=== PATIENT | male | born 1965 | race Caucasian/White ===

== ENCOUNTER 2020-07-09 08:19 | Emergency (ER) | payer MEDICARE, SELFPAY ==
[2020-07-09] VITALS (11 sets, daily range): BP systolic 134–158; BP diastolic 68–75; PULSE 59–64; RESP 13–19; TEMP 36.3; O2SAT 97–100; BMI 38.0
--- NOTE | 2020-07-09 08:26 | ED_ITS ---
HPI - General Adult General Chief complaint: Chest Pain Stated complaint: heart issue Time Seen by Provider: 07/09/20 08:21 Source: patient Mode of arrival: Ambulatory Limitations: no limitations History of Present Illness HPI narrative: 55-year-old male with known cardiac history to include an aortic valve replacement and also a coronary artery aneurysm repair approximately 10 years ago. Has also had a history of atrial fibrillation. Is on Coumadin. Here for evaluation of chest pain that radiates to his back. He states that the symptoms started yesterday afternoon. He feels like the symptoms have come and gone. He states that they woke him from sleep this morning approximately 1.5 hours prior to arrival here in the ER. No shortness of breath. Not worse with palpation or movement. Has had some nausea but no vomiting. Has been taking all of his medications as directed. Difficult for him to describe the discomfort but he can seem to pinpoint it in his anterior chest although touching over the area does not seem to make the symptoms worse. Has had off and on discomfort since his surgery many years ago but he states this is somewhat worse. Related Data Allergies Allergy/AdvReac Type Severity Reaction Status Date / Time No Known Drug Allergies Allergy Verified 07/09/20 08:30 Review of Systems Constitutional Constitutional: Denies fever(s) and Denies headache(s) ENT Ears, Nose, Mouth, and Throat: Denies headache(s) Cardiovascular Cardiovascular: Reports chest pain, Denies rapid heart rate, Denies irregular heart rhythm and Denies dyspnea Respiratory Respiratory: Denies dyspnea Gastrointestinal Gastrointestinal: Denies abdominal pain, Denies change in bowel habits, Reports nausea and Denies vomiting Genitourinary Genitourinary: Denies dysuria Genitourinary: Denies dysuria Musculoskeletal Musculoskeletal: Denies arthralgias and Denies myalgias Integumentary/Breasts Skin/Breast: Denies rash Neurologic Neurologic: Denies behavioral changes and Denies headache(s) Psychiatric Psychiatric: Denies behavioral changes Hematologic/Lymphatic Hematologic/Lymphatic: Denies easy bleeding and Denies easy bruising Allergic/Immunologic Allergic/Immunologic: Denies urticaria Patient History Medical History Atrial fibrillation Coronary artery aneurysm Surgical History Aortic valve replaced Social History Smoking Status: Never smoker Exam Initial Vital Signs Initial Vital Signs: Vital Signs Temperature 97.4 F L 07/09/20 08:20 Pulse Rate 64 07/09/20 08:20 Respiratory Rate 18 07/09/20 08:20 Blood Pressure 149/71 H 07/09/20 08:20 Pulse Oximetry 98 07/09/20 08:20 Const General: cooperative, healthy appearing, comfortable, well developed and well groomed Limitations: mental status not altered HENMT Head: normal to inspection and normocephalic Chest Chest: No tenderness Other: Well-healed midline surgical scar Resp Effort & Inspection: normal respiratory effort Auscultation: clear to auscultation bilaterally Cardio Rate: regular rate Rhythm: regular rhythm Heart Sounds: murmur (Consistent with his aortic valve replacement) GI Inspection: non-distended Palpation: soft Skin Lesions: no lesions Rashes: no rashes Other: Well-healed midline anterior chest surgical scar Neuro General: patient alert and patient awake Cognition: normal cognition Speech: speech normal Extrem General: normal to inspection, capillary refill normal and No edema Psych Appearance: grossly normal and well kempt Course Orders Ordered: ED Orders 07/09/20 08:26 EKG-12 Lead Stat 07/09/20 08:30 Complete Blood Count AUTO DIFF Stat Comprehensive Metabolic Panel Stat Lipase Stat Partial Thromboplastin Time Stat Prothrombin Time INR Stat Troponin & CK Cardiac Panel Stat 07/09/20 08:37 CT angio chest abdomen pelvis Stat 07/09/20 11:45 Troponin & CK Cardiac Panel Stat Discontinued Medications Sodium Chloride (Normal Saline 0.9%) 1,000 mls @ 1,000 mls/hr IV BOLUS ONE Stop: 07/09/20 09:36 Last Infusion: 07/09/20 10:40 Dose: 0 mls/hr Documented by: Admin: 07/09/20 08:54 Dose: 1,000 mls/hr Documented by: DAVID Vital Signs Vital signs: Vital Signs - 8 hr 07/09/20 08:20 07/09/20 09:39 07/09/20 09:42 Temperature 97.4 F L Pulse Rate 64 64 61 Respiratory Rate 18 13 Blood Pressure 149/71 H Pulse Oximetry 98 100 100 07/09/20 09:43 07/09/20 10:00 07/09/20 10:36 Temperature Pulse Rate 60 61 62 Respiratory Rate 17 18 19 Blood Pressure 154/72 H 144/69 H Pulse Oximetry 100 99 07/09/20 10:37 07/09/20 11:00 07/09/20 11:30 Temperature Pulse Rate 62 60 61 Respiratory Rate 16 15 15 Blood Pressure 158/72 H 154/68 H 146/74 H Pulse Oximetry 100 100 100 07/09/20 12:00 07/09/20 12:30 Temperature Pulse Rate 60 59 L Respiratory Rate 16 16 Blood Pressure 134/75 Pulse Oximetry 98 97 Medical Decision Making Lab Data Lab results reviewed: Yes I reviewed the patient's lab results. Result diagrams: 07/09/20 08:30 07/09/20 08:30 Labs: Lab Results 07/09/20 07/09/20 07/09/20 Range/Units 08:30 08:30 08:30 WBC 6.3 (4.5-11.0) X10^3/uL RBC 4.43 L (4.5-5.9) X10^6/uL Hgb 13.4 L (13.5-17.5) g/dL Hct 39.4 L (41-53) % MCV 89.0 (80-100) fL MCH 30.2 (26-34) PG MCHC 33.9 (30-36) % RDW 13.7 (11.6-14.8) % Plt Count 192 (150-400) X10^3/uL Neut % (Auto) 67.7 (50-75) % Lymph % (Auto) 18.5 L (25-40) % [place] % (Auto) 10.1 (3-14) % Eos % (Auto) 2.9 (2-4) % Baso % (Auto) 0.8 (0-2) % Neut # (Auto) 4300 (8748-0947) /uL Lymph # (Auto) 1200 (2130-1052) /uL [place] # (Auto) 600 (0-900) /uL Eos # (Auto) 200 (0-450) /uL Baso # (Auto) 0 (0-100) /uL PT (10.1-12.7) SECONDS INR (0.9-1.3) APTT (26.4-36.2) SECONDS Sodium 134 L (137-145) mmol/L Potassium 3.7 (3.4-5.1) mmol/L Chloride 103 (98-107) mmol/L Carbon Dioxide 30 (22-32) mmol/L BUN 17 (9-20) mg/dL Creatinine 0.82 (0.66-1.25) mg/dL Estimated GFR > 60.0 (>60) mL/min BUN/Creatinine Ratio 20.7 (6-22) Glucose 105 H (70-100) mg/dL Calcium 8.9 (8.4-10.2) mg/dL Total Bilirubin 1.0 (0.2-1.3) mg/dL AST 33 (17-59) IU/L ALT 26 (<50) IU/L Alkaline Phosphatase 128 H (38-126) U/L Total Creatine Kinase 361 H (55-170) U/L CK-MB (CK-2) 3.61 H (<2.37) ng/mL CK-MB (CK-2) Rel Index 1.0 L (1.5-5.0) % Troponin I < 0.012 (0.01-0.034) ng/mL Total Protein 7.0 (6.3-8.2) g/dL Albumin 4.2 (3.5-5.0) g/dL Globulin 2.8 (1.7-4.1) g/dL Albumin/Globulin Ratio 1.5 (1.0-2.8) Lipase 101 (23-300) U/L 07/09/20 07/09/20 Range/Units 08:30 11:45 WBC (4.5-11.0) X10^3/uL RBC (4.5-5.9) X10^6/uL Hgb (13.5-17.5) g/dL Hct (41-53) % MCV (80-100) fL MCH (26-34) PG MCHC (30-36) % RDW (11.6-14.8) % Plt Count (150-400) X10^3/uL Neut % (Auto) (50-75) % Lymph % (Auto) (25-40) % [place] % (Auto) (3-14) % Eos % (Auto) (2-4) % Baso % (Auto) (0-2) % Neut # (Auto) (2940-6479) /uL Lymph # (Auto) (3087-3667) /uL [place] # (Auto) (0-900) /uL Eos # (Auto) (0-450) /uL Baso # (Auto) (0-100) /uL PT 23.6 H (10.1-12.7) SECONDS INR 2.1 H (0.9-1.3) APTT 48 H (26.4-36.2) SECONDS Sodium (137-145) mmol/L Potassium (3.4-5.1) mmol/L Chloride (98-107) mmol/L Carbon Dioxide (22-32) mmol/L BUN (9-20) mg/dL Creatinine (0.66-1.25) mg/dL Estimated GFR (>60) mL/min BUN/Creatinine Ratio (6-22) Glucose (70-100) mg/dL Calcium (8.4-10.2) mg/dL Total Bilirubin (0.2-1.3) mg/dL AST (17-59) IU/L ALT (<50) IU/L Alkaline Phosphatase (38-126) U/L Total Creatine Kinase 338 H (55-170) U/L CK-MB (CK-2) 3.57 H (<2.37) ng/mL CK-MB (CK-2) Rel Index 1.1 L (1.5-5.0) % Troponin I < 0.012 (0.01-0.034) ng/mL Total Protein (6.3-8.2) g/dL Albumin (3.5-5.0) g/dL Globulin (1.7-4.1) g/dL Albumin/Globulin Ratio (1.0-2.8) Lipase (23-300) U/L ECG Data Attestation: I personally reviewed and interpreted this ECG as follows: Prior ECG tracings: not available for review Interpretation: Sinus rhythm Ventricular rate is 60 First-degree AV block with a MOIZ interval to 2 [address] T wave changes MDM Narrative Medical decision making narrative: Patient has had off and on symptoms since yesterday. He has nonspecific changes on his EKG. Has no acute abnormalities reported on the CT scan of his chest. Troponins negative x2. 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 He is instructed to contact his loading and unloading supervisor tomorrow for follow-up for when he does return home. He was given strict return precautions. He expressed understanding and agreement Discharge Plan Departure Patient Disposition: Home Clinical Impression: Atypical chest pain Instructions: DI for Atypical Chest Pain Activity Restrictions/Additional Instructions: Recommend you continue all of your medications as directed. Contact your c ardiologist tomorrow for follow-up the beginning of next week. Return to the emergency department for any new or worsening symptoms like we discussed
--- NOTE | 2020-07-09 08:37 | DI.CT.S_ITS ---
PROCEDURE: CT ANGIO CHEST ABDOMEN PELVIS INDICATIONS: Eval for thoracic aortic dissection TECHNIQUE: Precontrast 5 mm thick sections acquired from the lung apices to the iliac crests. After the administration of intravenous contrast, 2.5 mm thick sections again acquired from the lung apices to the iliac crests. Maximum intensity projection (MIP) oblique sagittal and coronal reformats were then acquired. For radiation dose reduction, the following was used: automated exposure control. COMPARISON: None. FINDINGS: Image quality: Excellent. AORTA: The aorta demonstrates normal caliber. There is dense calcification seen involving the aortic valve and the proximal ascending aorta. No findings of aortic dissection can be seen. The abdominal aorta likewise demonstrates normal caliber, without findings of dissection. The pelvic arteries are likewise within normal limits. CHEST: Lungs and pleura: No acute airspace opacities. No pleural effusions or pneumothorax. Central and peripheral airways are patent and normal in caliber. Mediastinum: Heart size is normal. No pericardial effusion. No mediastinal or hilar adenopathy by size criteria. Central pulmonary arteries are normal in size. Esophagus is normal in caliber. No hiatal hernias. Bones and chest wall: No axillary adenopathy by size criteria. Thyroid gland is small in size. No suspicious bony lesions. No vertebral body compression fractures. ABDOMEN: Vasculature: Celiac trunk and mesenteric arteries are patent. Renal arteries are also patent. Solid organs: Liver is normal in size and enhancement. Gallbladder has been removed. Biliary system is non dilated. Pancreas enhances normally. Spleen is normal in size and enhancement. No adrenal nodules. Both kidneys are normal in size and enhancement, without hydronephrosis. There is a 2 mm nonobstructing left-sided kidney stone seen, as on series 3, image 72. Peritoneum and bowel: No free fluid or air. Bowel loops are normal in caliber and wall thickness. Focal inflammatory change can be seen within the fat adjacent to the descending colon anteriorly, as on series 3, image 77. Nodes and vessels: No retroperitoneal or mesenteric adenopathy by size criteria. Inferior vena cava is normal in morphology. Miscellaneous: No ventral hernias. PELVIS: Genitourinary: Bladder wall thickness is normal. Miscellaneous: No inguinal adenopathy. There is a mild fat containing left inguinal hernia. No ventral hernias. Bones: No suspicious bony lesions. No vertebral body compression fractures. IMPRESSION: Negative for aortic dissection or aortic aneurysm. Dense calcification can be seen involving the aortic valve and the proximal ascending thoracic aorta. Focal inflammatory change can be seen adjacent to the descending colon. Please consider epiploic appendagitis. Incidental note is made of: Cholecystectomy 2 mm nonobstructing left-sided kidney stone Mild fat containing left inguinal hernia Dictated by: Pavel Sanchez M.D. on 07/09/2020 at 8:54 Approved by: Pavel Sanchez M.D. on 07/09/2020 at 9:00
[2020-07-09 08:46] LABS: Add Manual Diff / Slide Review NO; Basophils Absolute Auto 0 /uL (0-100); Basophils Percent Auto 0.8 % (0-2); Eosinophils Absolute Auto 200 /uL (0-450); Eosinophils Percent Auto 2.9 % (2-4); Hematocrit 39.4 % (41-53); Hemoglobin 13.4 g/dL (13.5-17.5); Lymphocytes Absolute Auto 1200 /uL (1100-4500); Lymphocytes Percent Auto 18.5 % (25-40); Mean Corpuscular HGB Conc 33.9 % (30-36); Mean Corpuscular Hemoglobin 30.2 PG (26-34); Monocytes Absolute Auto 600 /uL (0-900); Monocytes Percent Auto 10.1 % (3-14); Neutrophils Absolute Auto 4300 /uL (1500-7000); Neutrophils Percent Auto 67.7 % (50-75); Platelet Count 192 X10^3/uL (150-400); Red Blood Cell Count 4.43 X10^6/uL (4.5-5.9); Red Cell Distribution Width 13.7 % (11.6-14.8); White Blood Cell Count 6.3 X10^3/uL (4.5-11.0)
[2020-07-09] MEDS: SODIUM CHLORIDE 0.9% 1,000 ML 1000 ML IV (08:54)
[2020-07-09 08:55] LABS: INR 2.1 (0.9-1.3); Prothrombin Time 23.6 SECONDS (10.1-12.7)
[2020-07-09 08:58] LABS: Creatine Kinase 361 U/L (55-170); PTT Partial Thromboplastin Tim 48 SECONDS (26.4-36.2)
[2020-07-09 08:59] LABS: Alanine Aminotransferase 26 IU/L (<50); Albumin 4.2 g/dL (3.5-5.0); Albumin Globulin Ratio 1.5 (1.0-2.8); Alkaline Phosphatase 128 U/L (38-126); Aspartate Aminotransferase 33 IU/L (17-59); BUN Creatinine Ratio 20.7 (6-22); Blood Urea Nitrogen 17 mg/dL (9-20); Calcium 8.9 mg/dL (8.4-10.2); Carbon Dioxide 30 mmol/L (22-32); Chloride 103 mmol/L (98-107); Estimated Glomerular Filt Rate > 60.0 mL/min (>60); Globulin 2.8 g/dL (1.7-4.1); Glucose 105 mg/dL (70-100); HEMOLYSIS 16 (0-50); Lipase 101 U/L (23-300); Potassium 3.7 mmol/L (3.4-5.1); Sodium 134 mmol/L (137-145)
[2020-07-09 09:11] LABS: Troponin I < 0.012 ng/mL (0.01-0.034)
[2020-07-09 09:13] LABS: Creatine Kinase MB 3.61 ng/mL (<2.37)
[2020-07-09 12:08] LABS: Creatine Kinase 338 U/L (55-170)
[2020-07-09 12:21] LABS: Troponin I < 0.012 ng/mL (0.01-0.034)
[2020-07-09 12:23] LABS: CKMB % Relative Index 1.1 % (1.5-5.0); Creatine Kinase MB 3.57 ng/mL (<2.37)
== END 2020-07-09 13:10 | disposition home or self-care (01) ==
PROVIDERS: Emergency Provider Emergency Medicine
DX: R07.89 Other chest pain (principal); Z95.2 Presence of prosthetic heart valve; I48.91 Unspecified atrial fibrillation; Z79.01 Long term (current) use of anticoagulants
CPT/HCPCS: 36415; 71275; 74174; 80053; 82550; 82553; 83690; 84484; 85025; 85610; 85730; 93005; 93010; 96360; 96361; 99284; Q9967